=== PATIENT | male | born 1955 | race Two or more races ===

== ENCOUNTER 2024-07-09 18:46 | Emergency (ER) | payer OTHER ==
[~2024-07-09] VITALS: Ht 180.3 cm; Wt 83.6 kg
--- NOTE | 2024-07-09 19:05 | ED.PDOC ---
History of Present Illness HPI Comments 69-year-old male who comes in with chief complaint of low potassium with generalized weakness. The patient was currently on chemotherapy for colon cancer and states that she had some blood drawn today. The patient was told that his potassium was less than 2.5 so he should come to the emergency department's for evaluation. The patient is stating that he is weak and also dizzy and had a near syncopal episode. There has been no fever or chills. Patient was able to ambulate into the emergency department's without any difficulty. Time Seen by MD: 18:50 Reviewed Notes: Nurses Notes, Medications, Allergies (No allergies to medications) Allergies: Coded Allergies: NO KNOWN ALLERGIES (Unverified , 07/09/24) Information Source: Patient Mode of Arrival: Ambulatory Severity: Mild Timing: Days Duration: Since onset Prehospital treatment: None Associated signs and symptoms No associated nausea or vomiting with the patient was having generalized weakness Past Medical History PAST MEDICAL HISTORY: Cancer (History of colon cancer), HTN Family History Family History: Family hx of Cancer Social History Smoker: Non-Smoker Alcohol: Denies ETOH Use Drugs: Denies Drug Use Lives In: Home Constitutional: reports: weakness; denies: chills, diaphoresis, fatigue, fever, malaise, sweats, others EENTM: denies: blurred vision, double vision, ear bleeding, ear discharge, ear drainage, ear pain, ear ringing, eye pain, eye redness, hearing loss, mouth pain, mouth swelling, nasal discharge, nose bleeding, nose congestion, nose pain, photophobia, tearing, throat pain, throat swelling, voice changes, others Respiratory: denies: cough, hemoptysis, orthopnea, SOB at rest, shortness of breath, SOB with excertion, stridor, wheezing, others Cardiovascular: reports: dizzy spells, syncope (Near-syncope); denies: chest pa in, diaphoresis, Dyspnea on exertion, edema, irregular heart beat, left arm pain, lightheadedness, palpitations, PND, others Gastrointestinal: denies: abdomen distended, abdominal pain, blood streaked bowels, constipated, diarrhea, dysphagia, difficulty swallowing, hematemesis, melena, nausea, poor appetite, poor fluid intake, rectal bleeding, rectal pain, vomiting, others Genitourinary: denies: burning, dysuria, flank pain, frequency, hematuria, incontinence, penile discharge, penile sore, pain, testicle pain, testicle swelling, urgency, others Neurological: denies: dizziness, fainting, headache, left sided numbness, left sided weakness, numbness, paresthesia, pre-existing deficit, right sided numbness, right sided weakness, seizure, speech problems, tingling, tremors, weakness, others Musculoskeletal: denies: back pain, gout, joint pain, joint swelling, muscle pain, muscle stiffness, neck pain, others Integumetry: denies: bruises, change in color, change in hair/nails, dryness, laceration, lesions, lumps, rash, wounds, others Allergic/Immunocompromised: denies: Difficulty Healing, Frequent Infections, Hives, Itching, others Hematologic/Lymphatic: denies: anemia, blood clots, easy bleeding, easy bruising, swollen glands, others Endocrine: denies: excessive hunger, excessive sweating, excessive thirst, excessive urination, flushing, intolerance to cold, intolerance to heat, unexplained weight gain, unexplained weight loss, others Psychiatric: denies: anxiety, bipolar disorder, depression, hopeless, panic disorder, schizophrenia, sleepless, suicidal, others Physical Exam General Appearance: Moderate Distress HEENT: Pale Conjuntivae (L), Pale Conjuntivae (R), Pharynx Normal, TMs Normal Neck: Full Range of Motion, Non-Tender, Normal, Normal Inspection Respiratory: Chest Non-Tender, Lungs Clear, No Accessory Muscle Use, No Respiratory Distress, Normal Breath Sounds Cardiovascular: No Edema, No JVD, No Murmur, No Gallop, Normal Peripheral Pulses, Regular Rate/Rhythm Breast Exam: Deferred Gastrointestinal: No Organomegaly, Non Tender, No Pulsatile Mass, Normal Bowel Sounds, Soft Genitalia: Deferred Pelvic: Deferred Rectal: Deferred Extremities: No calf tenderness, Normal capillary refill, Normal inspection, Normal range of motion, Non-tender, No pedal edema Musculoskeletal : Apperance: Normal Neurologic: Alert, emission technician II-XII nml as Tested, No Motor Deficits, Normal Affect, Normal Mood, No Sensory Deficits Cerebellar Function: Normal Reflexes: Normal Skin: Dry, Normal Color, Warm Lymphatic: No Adenopathy Was a procedure done? Was a procedure done?: No Differential Dx Considerations may include: Electrolyte imbalance, hypokalemia, anemia X-Ray, Labs, Meds, VS Vital Signs Date Time Temp Pulse Resp B/P (MAP) Pulse Ox O2 Delivery O2 Flow Rate FiO2 07/09/24 21:59 100 07/09/24 21:55 103 18 96 Room Air 07/09/24 21:55 98.2 103 18 125/79 (94) 96 98.2 07/09/24 18:57 98.1 120 20 99/71 (80) 96 Lab Test 07/09/24 19:16 Range/Units White Blood Count 7.4 4.4-10.8 10^3/uL Red Blood Count 4.93 4.5-5.90 10^6/uL Hemoglobin 15.6 13.5-17.5 g/dL Hematocrit 46.8 41.0-53.0 % Mean Corpuscular Volume 95.1 80.0-100.0 fL Mean Corpuscular Hemoglobin 31.7 28.0-32.0 pg Mean Corpuscular Hemoglobin Concent 33.4 32.0-36.0 g/dL Red Cell Distribution Width 14.1 11.8-14.3 % Platelet Count 262 140-450 10^3/uL Mean Platelet Volume 6.5 L 6.9-10.8 fL Neutrophils (%) (Auto) 37.0-80.0 % Lymphocytes (%) (Auto) 10.0-50.0 % Monocytes (%) (Auto) 0.0-12.0 % Basophils (%) (Auto) 0.0-2.0 % Neutrophils # (Auto) 1.6-8.6 10 ^3/uL Lymphocytes # (Auto) 0.4-5.4 10 ^3/uL Monocytes # (Auto) 0-1.3 10 ^3/uL Differential Total Cells Counted 100.0 100 Neutrophils % (Manual) 49 37.0-80.0 Band Neutrophils % (Manual) 0 Lymphocytes % (Manual) 21 10.0-50.0 Monocytes % (Manual) 27 H 0-12 Eosinophils % (Manual) 3 0-7 Basophils % (Manual) 0 0.0-2.0 Metamyelocytes % (manual) 0 Myelocytes % (Manual) 0 Promyelocytes % (Manual) 0 Blast Cells % (Manual) 0 Reactive Lymphocytes 0 Smudge Cells 3 /100 WBC Platelet Estimate Adequate Sodium Level 138 136-145 mmol/L Potassium Level 2.6 L 3.5-5.1 mmol/L Chloride Level 110 H 98-107 mmol/L Carbon Dioxide Level 13 L 20-31 mmol/L Anion Gap 15 5-15 Blood Urea Nitrogen 16 9-23 mg/dL Creatinine 1.64 H 0.700-1.30 mg/dL Glomerular Filtration Rate Calc 46 >90 mL/min BUN/Creatinine Ratio 9.8 L 10.0-20.0 Serum Glucose 154 H 74-106 mg/dL Calcium Level 8.8 8.7-10.4 mg/dL Current Medications Medications (Trade) Dose Ordered Sig/Cassy Route Start Time Stop Time Status Last Admin Potassium Chloride (Klor-Con Tablet) 40 meq ONCE ONCE PO 07/09/24 20:30 07/09/24 20:31 DC 07/09/24 22:07 Loperamide HCl (Imodium Capsule) 8 mg ONCE ONCE PO 07/09/24 22:15 07/09/24 22:16 07/09/24 22:07 IV Hep-Lock was established The patient was given 40 mEq of potassium p.o. The patient was also given potassium IV For the diarrhea the patient was given Imodium 8 mg p.o. The CBC is within normal limits The chemistry panel shows hypokalemia at 2.6 The CO2 level is 13 The creatinine is 1.64 We are awaiting the call from Alessandro for authorization for either admission or transfer on this patient The patient will be signed out to Dr. Suh Time of 1ST Reevaluation: 19:05 Reevaluation 1ST: Unchanged Patient Education/Counseling: Diagnosis, Treatment, Prognosis Family Education/Counseling: No Family Present Departure 1 Departure Time of Disposition: 22:09 Impression: Primary Impression: Generalized weakness Additional Impression: Hypokalemia Disposition: 30 STILL A PATIENT Condition: Fair Discharged With: Self Critical Care Note Critical Care Time?: No Stability Stability form required: Yes Unstable for transfer: Telemetry monitoring (Telemetry monitoring required), ED Physician Assesment (Clinical assesment) Heart Score Heart Score: Heart Score Response (Comments) Value History N/A 0 EKG N/A 0 Age N/A 0 Risk Factors N/A 0 Troponin N/A 0 Total 0 SHANELL MASSEY MD Jul 09, 2024 19:05
[2024-07-09 19:31] LABS: Hematocrit 46.8 % (41.0-53.0); Hemoglobin 15.6 g/dL (13.5-17.5); Mean Corpuscular Hemoglobin 31.7 pg (28.0-32.0); Mean Corpuscular Hgb Conc. 33.4 g/dL (32.0-36.0); Mean Corpuscular Volume 95.1 fL (80.0-100.0); Platelet Count (auto) 262 10^3/uL (140-450); Red Blood Cells 4.93 10^6/uL (4.5-5.90); Red Cell Distribution Width 14.1 % (11.8-14.3); White Blood Cell 7.4 10^3/uL (4.4-10.8)
[2024-07-09 19:38] LABS: Band Neutrophils % (manual) 0; Basophils % (manual) 0 (0.0-2.0); Blast Cells 0; Metamyelocytes % 0; Myelocytes % 0; Promyelocytes % 0; Reactive Lymphocytes 0
[2024-07-09 19:43] LABS: Sodium 138 mmol/L (136-145)
[2024-07-09 19:44] LABS: Anion Gap 15 (5-15); Calcium 8.8 mg/dL (8.7-10.4)
[2024-07-09 19:49] LABS: BUN/Creatinine Ratio 9.8 (10.0-20.0); Blood Urea Nitrogen 16 mg/dL (9-23)
[2024-07-09 19:55] LABS: Carbon Dioxide 13 mmol/L (20-31); Chloride 110 mmol/L (98-107); Glucose 154 mg/dL (74-106); Potassium 2.6 mmol/L (3.5-5.1)
[2024-07-09 20:08] LABS: Eosinophils % (manual) 3 (0-7); Lymphocytes % (manual) 21 (10.0-50.0); Monocytes % (manual) 27 (0-12); Platelet Estimate Adequate; Smudge Cells 3 /100 WBC
[2024-07-09] MEDS: LOPERAMIDE HCL 2 MG CAP/TAB PO ONE (22:07)
[2024-07-09] MEDS: POTASSIUM CHL 20 Meq TABLET PO ONE (22:07)
[2024-07-09] MEDS: POTASSIUM CHL 20MEQ/100ML 100 ML IV ONE (22:09)
[2024-07-09 22:10] VITALS: RESP 18; O2SAT 96
[2024-07-10 00:12] LABS: Urine Bacteria None Seen /hpf (None Seen)
[2024-07-10 00:46] LABS: Urine Blood Negative /uL (Negative); Urine Clarity Turbid (Clear); Urine Color Yellow (Yellow); Urine Hyaline Cast MANY /lpf (0 - 2); Urine Mucus FEW (None Seen); Urine Protein, UAD 1+ (Negative); Urine Specific Gravity 1.023 (1.001-1.035); Urine Squamous Epithelial Cell FEW /hpf (<5); Urine Urobilinogen Normal (Negative); Urine WBC 4 /HPF (0-3)
[2024-07-10 03:42] VITALS: BP 137/79; PULSE 95; RESP 18; TEMP 98.1; O2SAT 95
--- NOTE | 2024-07-10 06:14 | ECG ---
[facility] Test Date: 2024-07-09 Test Time: 23:28:29 Pat Name: MARCELA AMADO Department: ER Room: Gender: M Primary Clinician: : [id number] Requested By: SHANELL MASSEY Order Number: [id number] Reading MD: Dimitry Santiago Measurements Intervals [place] Rate: 95 P: 78 [place]: 163 QRS: 63 QRSD: 95 T: 7 QT: 347 QTc: 436 Interpretive Statements Sinus rhythm Electronically Signed On 07-11-2024 11:59:33 PST by Dimitry Santiago Please click the below link to view image of tracing.
== END 2024-07-10 04:01 | disposition short-term general hospital (02) ==
LOC: ER 18:46
DX: E87.6 Hypokalemia (principal); R53.1 Weakness; I10 Essential (primary) hypertension
CPT/HCPCS: 36415; 80048; 81001; 85007; 85027; 93005; 96365; 96366; 99285; J3480